=== PATIENT | female | born 1960 | race African-American/Black ===

== ENCOUNTER 2024-03-24 10:56 | Emergency (ER) | payer SELFPAY ==
[~2024-03-24] VITALS: Ht 157.5 cm; Wt 83.0 kg
[2024-03-24 11:13] VITALS: O2SAT 98
[2024-03-24] MEDS: HYDROCODONE/ACETAMINOPHEN 5/325MG TABLET PO ONE (11:30)
[2024-03-24 12:09] LABS: BASOPHILS % 0.5 % (0.0-2.0); EOSINOPHILS % 0.2 % (0.0-5.0); HEMATOCRIT. 41.9 % (36.0-48.0); HEMOGLOBIN. 13.8 g/dL (12.0-16.0); LYMPHOCYTES % 17.7 % (20.0-50.0); MEAN CORPUSCULAR HEMOGLOBIN 28.6 pg (28.0-32.0); MEAN CORPUSCULAR HGB CONC 32.8 g/dL (31.0-37.0); MEAN CORPUSCULAR VOLUME 87.1 fL (81.0-99.0); MONOCYTES % 5.9 % (2.0-8.0); NEUTROPHILS % 75.7 % (40.0-76.0); PLATELET 223 x1000/uL (130-400); RED BLOOD CELL COUNT 4.81 mill/uL (4.2-5.4); RED CELL DISTRIBUTION WIDTH 14.7 % (11.6-14.6); WHITE BLOOD COUNT 9.7 x1000/uL (4.5-11.0)
[2024-03-24 12:17] LABS: CHLORIDE 103 mEq/L (98-107); POTASSIUM 3.8 mEq/L (3.5-5.1); SODIUM 139 mEq/L (136-145)
[2024-03-24 12:18] LABS: CALCIUM 9.5 mg/dL (8.7-10.4); CARBON DIOXIDE 27 mEq/L (21-32)
[2024-03-24 12:23] LABS: CREATININE 0.8 mg/dL (0.6-1.0); GLUCOSE 94 mg/dL (70-105); UREA NITROGEN BLOOD 10 mg/dL (9-23)
[2024-03-24] MEDS ORDERED: IOHEXOL-300 100 ML BOTTLE ONE (13:29)
[2024-03-24] MEDS ORDERED: AMOX1TAB16 MT (13:49)
[2024-03-24] MEDS ORDERED: IBUP-2028 MT (13:50)
[2024-03-24 14:10] VITALS: BP 130/70; PULSE 95; RESP 16; TEMP 98.3
[2024-03-24] MEDS: AMOXICILLIN/POTASSIUM CLAVULANATE 875/125MG TAB PO ONE (14:17)
== END 2024-03-24 14:23 | disposition home or self-care (01) ==
LOC: ER 10:56
DX: K04.7 Periapical abscess without sinus (principal); K02.9 Dental caries, unspecified; Z98.890 Other specified postprocedural states
CPT/HCPCS: 80048; 85025; 36415; 70487; 99285; Q9967; Z7610 ×2